=== PATIENT | female | born 1970 | race Caucasian/White ===

== ENCOUNTER → 2017-02-19 | Outpatient (CLI) | payer BC ==
--- NOTE | 2017-02-19 14:53 | MM ---
Reason for exam: additional evaluation requested from abnormal screening. Last mammogram was performed less than 1 month ago. History: Family history of breast cancer in maternal grandmother. Physical Findings: Nurse did not find any significant physical abnormalities on exam. MG Work Up Mamm w CAD LT Spot compression CC, spot compression MLO, and LM view(s) were taken of the left breast. Prior study comparison: February 10, 2017, bilateral MG screening mammo w CAD. September 11, 2015, bilateral MG screening mammo w CAD. The breast tissue is heterogeneously dense. This may lower the sensitivity of mammography. Vague dense area upper outer quadrant does not completely go away. These results were verbally communicated with the patient and result sheet given to the patient on 02/19/17. ASSESSMENT: Incomplete: need additional imaging evaluation, BI-RAD 0 RECOMMENDATION: Ultrasound of the left breast.
--- NOTE | 2017-02-19 14:54 | USB ---
Reason for exam: additional evaluation requested from abnormal screening. History: Family history of breast cancer in maternal grandmother. US Breast Workup Limited LT Left breast ultrasound demonstrates a 0.9 x 0.6 x 0.3cm oval lesion too small to characterize at 2 o'clock. These results were verbally communicated with the patient and result sheet given to the patient on 02/19/17. ASSESSMENT: Benign, BI-RAD 2 RECOMMENDATION: Return to routine screening mammogram schedule for both breasts.
== END | disposition home or self-care (01) ==
LOC: RADMAMWWP 13:43
PROVIDERS: ATTEND Obstetrics & Gynecology
DX: R92.8 Other abnormal and inconclusive findings on diagnostic imaging of breast (principal)
CPT/HCPCS: 76642; G0206

== ENCOUNTER → 2017-03-10 | Outpatient (CLI) | payer BC ==
--- NOTE | 2017-03-11 06:48 | WWHP ---
[facility] - HISTORY AND PHYSICAL DATE OF SERVICE: 03/10/2017 CHIEF COMPLAINT: The patient is here for her routine gynecologic exam. HPI: This is a 46-year-old G8, P6 with an LMP of 02/18/2017. She is status post tubal ligation and endometrial ablation. She states her menstrual cycles have become regularly irregular. Every other month, she has a 4 week cycle and every other month she has a 2 to 3 week cycle. She states the first day of each menses has been quite painful and she has taken Aleve and extra-strength Tylenol for this. She states it is manageable. Periods are typically lasting 3 to 4 days and are slightly heavier than they were after her ablation, but are still log chain feeder than before the ablation. Typically the first day there is a flow, but the rest of the days are fairly light and spotty. She does have occasional hot flashes, which are not a big problem. The pain associated with the early part of the period can sometimes wake her up at night and has also had to use a heating pad at times. PAST MEDICAL HISTORY: Chronic back problems in the past. MEDICATIONS: Aleve p.r.n., and Tylenol Extra Strength p.r.n. ALLERGIES: No known drug allergies. 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 SOCIAL HISTORY: She denies tobacco and drug use and has about 6 alcohol containing drinks per week. REVIEW OF SYSTEMS: She has lost about 7 pounds over the last 1-1/2 years. She denies respiratory, cardiac or GI problems. PHYSICAL EXAM: Blood pressure 149/81, height 5 feet 7 inches, weight 169 pounds, BMI 26, temperature 98.8, pulse 73. This is a well-developed, well-nourished, white female, who is alert and oriented x3, in no acute distress. HEENT is within normal limits. NECK: Supple without mass or thyromegaly. CHEST AND LUNGS: Clear to auscultation. HEART: Regular rate and rhythm. Breasts are without mass or discharge. Axillary exam is negative for adenopathy. BACK: Negative for CVA tenderness. ABDOMEN: Soft, nontender, without palpable masses. PELVIC EXAM: Normal external genitalia. Cervix appears multiparous. There are no lesions. There is no evidence of prolapse. The uterus is mid position, nongravid size and nontender. There are no palpable adnexal masses or tenderness. Rectovaginal exam is negative for mass or tenderness and is negative for occult blood. EXTREMITIES: Nontender. IMPRESSION: 1. A 46-year-old female with regularly, irregular menstrual cycles. She alternates between 4 and 2-1/2 week cycles. 2. Dysmenorrhea without any significant physical findings. 3. She is status post endometrial ablation and tubal sterilization. 4. Possible early perimenopause. PLAN: 1. Pap smear was deferred since she had a normal 1 last year. 2. Self breast examination was discussed. 3. Mammogram was recently done with left-side workup, which was benign. This will be redone in 1 year. 4. Trial of Anaprox DS 1 b.i.d. p.r.n. for menstrual pain and she will not take any other NSAID type medications while she is using this. 5. Pelvic ultrasound will be scheduled to further evaluate her dysmenorrhea. 6. The patient will keep a menstrual calendar and return if she is having greater menstrual problems. If so, we will consider surgical options such as vaginal hysterectomy. 7. She will return in one year and p.r.n. MMODL / IJN: [id number] /
== END | disposition home or self-care (01) ==
LOC: WWCWWP 15:51
PROVIDERS: ATTEND Obstetrics & Gynecology
DX: Z01.419 Encounter for gynecological examination (general) (routine) without abnormal findings (principal)

== ENCOUNTER → 2018-04-27 | Outpatient (CLI) | payer BC ==
[2018-04-27 10:54] VITALS: BP 132/74; PULSE 63; TEMP 97.9; BMI 26.6
--- NOTE | 2018-04-27 11:34 | P.HPOB ---
History of Present Illness H&P Date: 04/27/18 Chief Complaint: The patient is here for her routine gynecologic exam and mammogram. This is a 47-year-old with an LMP of 02/11/2018. The patient thinks she may be going through a menopausal change. Her menses during the past year have typically been about every 3 to 4 weeks and light. She continues to have fairly painful periods. She did not do the pelvic ultrasound as recommended at her last annual exam. She is declining the pelvic ultrasound at this time. She is noticed a significant increase in hot flashes during the past 2 months. She has hot flashes up to 20 times per day. She also has his hot flashes at night. She has missed the last 2 menstrual periods. She is status post tubal sterilization and endometrial ablation. Review of Systems The patient's weight has been stable over the last year. She denies respiratory , cardiac, or G.I. problems. Past Medical History Past Medical History: No Reported History Additional Past Medical History / Comment(s): Chronic back problems. PAST LEARNING DISABILITIES RESOURCE TEACHER HISTORY: She has no history of STDs. She is status post colonization and LEEP procedures of the cervix for cervical dysplasia in 1995. History of Any Multi-Drug Resistant Organisms: None Reported Past Surgical History: Tonsillectomy, Tubal Ligation, Uterine Ablation (2009) Additional Past Surgical History / Comment(s): Conization of the cervix and LEEP of the cervix in 1995. 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 - Past Family History Father Family Medical History: Cancer (Prostate cancer) Mother Family Medical History: Cancer (Skin cancer) Additional Family Medical History / Comment(s): Maternal grandmother had breast cancer. Medications and Allergies Home Medications Medication Instructions Recorded Confirmed Type No Known Home Medications 04/21/14 04/27/18 History Allergies Allergy/AdvReac Type Severity Reaction Status Date / Time No Known Allergies Allergy Verified 04/27/18 10:50 Exam Vital Signs Temp Pulse BP 04/27/18 10:51 97.9 F 63 132/74 Intake and Output 04/26/18 04/27/18 04/27/18 22:59 06:59 14:59 Other: Weight 77.111 kg Height 5'7", weight 170 pounds, BMI 26.6. This is a well-developed well-nourished white female who is alert and oriented times 3 in no acute distress. HEENT: Within normal limits. NECK: Supple without mass or thyromegaly. CHEST AND LUNGS: Clear to auscultation. HEART: Regular rate and rhythm. BREASTS: Are without mass or discharge. AXILLARY EXAM: Negative for adenopathy. BACK: Negative for CVA tenderness. ABDOMEN: Soft, nontender, without palpable masses. PELVIC EXAM: Normal external genitalia. Cervix and vagina appear normal. There is no unusual discharge. There is no evidence of prolapse. The uterus is midposition, nongravid size and nontender. There are no palpable adnexal masses or tenderness. RECTAL EXAM: negative for mass or tenderness and is negative for occult blood. EXTREMITIES: Nontender. IMPRESSION: 1. 47 year old perimenopausal female with recent oligomenorrhea and vasomotor symptoms with normal gynecologic exam. 2. Status post tubal sterilization and endometrial ablation. 3. Dysmenorrhea without any significant physical findings at this time. PLAN: 1. Pap smear was performed. 2. Self breast awareness was discussed with the patient. 3. Screening mammogram will be done today. 4. She did not have the pelvic ultrasound done as recommended. With her normal gynecologic exam, she is not interested in doing the pelvic ultrasound at this time. She will call if she is worsening symptoms or problems. 5. Osteoporosis prevention was discussed. I have stressed the importance of adequate calcium, vitamin D and regular exercise. Recommended amounts of calcium and vitamin D were also discussed. 6. She will keep a menstrual calendar call if problems. 7. She will return in one year.
--- NOTE | 2018-05-01 11:07 | MM ---
Reason for exam: screening (asymptomatic). Last mammogram was performed 1 year and 2 months ago. History: Family history of breast cancer in maternal grandmother. Took hormonal contraceptives for 3 years. MG Screening Mammo w CAD Bilateral CC and MLO view(s) were taken. Prior study comparison: February 19, 2017, left breast MG work up mamm w CAD LT. February 10, 2017, bilateral MG screening mammo w CAD. The breast tissue is extremely dense which could obscure a lesion on mammography. No discrete abnormality. ASSESSMENT: Benign, BI-RAD 2 RECOMMENDATION: Routine screening mammogram of both breasts in 1 year.
== END ==
LOC: WWCWWP 10:36
PROVIDERS: ATTEND Obstetrics & Gynecology
DX: Z12.31 Encounter for screening mammogram for malignant neoplasm of breast (principal)
CPT/HCPCS: 77067